=== PATIENT | male | born 1990 | race Caucasian/White ===

== ENCOUNTER 2017-09-26 15:41 | Emergency (ER) | payer OTHER, SELFPAY ==
[2017-09-26] MEDS ORDERED: ALBUTEROL 2.5 MG/3 ML NEB SOL ONE (17:11)
[2017-09-26] MEDS ORDERED: IPRATROPIUM BROM 0.5MG/2.5ML ONE (17:12)
--- NOTE | 2017-09-26 17:38 | RAD REPORT ---
EXAM DESCRIPTION: Moisés Burton And Jacob (2 Views)09/26/2017 5:31 pm CLINICAL HISTORY: Cough COMPARISON: None FINDINGS: The lungs appear clear of acute infiltrate. The heart is normal size. Scoliosis involves thoracolumbar spine IMPRESSION: No acute abnormalities displayed
[2017-09-26] MEDS ORDERED: MAGNESIUM SULFATE 1 gm IVPB 1 GM/100 ML BAG IV ONE (18:17)
[2017-09-26] MEDS ORDERED: DEXAMETHASONE 10 MG/ML VIAL ONE (18:17)
[2017-09-26 18:25] LABS: Absolute Lymphocytes (CBC) 3.4 K/uL (0.7-4.9); Absolute Monocytes 1.2 K/uL (0.1-1.3); Absolute Neutrophil 9.1 K/uL (1.8-8.0); Basophils % 0.4 % (0-1.3); Eosinophils % 0.9 % (0-4.4); Hematocrit 48.4 % (39.6-49.0); Lymphocytes % 24.6 % (15.3-44.8); MCV 87.3 fL (80-100); MPV 7.6 fL (7.6-11.3); Monocytes % 8.4 % (3.3-12.3); RBC Red Blood Cell Count 5.54 M/uL (4.33-5.43)
[2017-09-26 18:30] LABS: Bicarbonate 28 mEq/L (21-31); Glucose Level 109 mg/dL (65-120); Potassium 3.1 mEq/L (3.6-5.0); Sodium Level 137 mEq/L (135-145)
[2017-09-26 18:31] LABS: BUN Blood Urea Nitrogen 9 mg/dL (6-20)
--- NOTE | 2017-09-26 18:52 | EDPHYS ---
Physician Documentation [facility] Name: Magan Agarwal Age: 26 yrs Sex: Male : 1990 Arrival Date: 09/26/2017 Time: 15:43 Bed 27 Private MD: None, None ED Physician José Miguel Fernandes HPI: 09/26 17:31 This 26 yrs old Male presents to ER via Ambulatory with complaints of kb Breathing Difficulty. 17:31 The patient or guardian reports cough, that is intermittent, described as moderate, kb with no sputum, difficulty breathing. Onset: The symptoms/episode began/occurred 5 day(s) ago. Severity of symptoms: At their worst the symptoms were moderate, in the emergency department the symptoms are unchanged. Modifying factors: The symptoms are alleviated by nothing, the symptoms are aggravated by nothing. Associated signs and symptoms: Pertinent positives: rhinorrhea, Pertinent negatives: chest pain, diarrhea, ear ache, fever, nausea, sore throat, vomiting. The patient has not experienced similar symptoms in the past. The patient has been recently seen by a physician:. 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 - Social history:: Smoking status: Patient uses tobacco products, smokes one-half pack cigarettes per day. ROS: 17:30 Constitutional: Negative for fever, chills, and weight loss, Cardiovascular: Negative kb for chest pain, palpitations, and edema, Abdomen/GI: Negative for abdominal pain, nausea, vomiting, diarrhea, and constipation, Back: Negative for injury and pain, : Negative for injury, bleeding, discharge, and swelling, MS/Extremity: Negative for injury and deformity, Skin: Negative for injury, rash, and discoloration, Neuro: Negative for headache, weakness, numbness, tingling, and seizure. 17:30 ENT: Positive for rhinorrhea, sinus congestion. 17:30 Respiratory: Positive for cough, with no reported sputum, shortness of breath, Negative for dyspnea on exertion, hemoptysis, orthopnea, pleurisy, wheezing. Exam: 17:31 Constitutional: This is a well developed, well nourished patient who is awake, alert, kb and in no acute distress. Head/Face: Normocephalic, atraumatic. ENT: Nares patent. No nasal discharge, no septal abnormalities noted. Tympanic membranes are normal and external auditory canals are clear. Oropharynx with no redness, swelling, or masses, exudates, or evidence of obstruction, uvula midline. Mucous membranes moist. Neck: Trachea midline, no thyromegaly or masses palpated, and no cervical lymphadenopathy. Supple, full range of motion without nuchal rigidity, or vertebral point tenderness. No Meningismus. Chest/axilla: Normal chest wall appearance and motion. Nontender with no deformity. No lesions are appreciated. Cardiovascular: Regular rate and rhythm with a normal S1 and S2. No gallops, murmurs, or rubs. Normal PMI, no JVD. No pulse deficits. Abdomen/GI: Soft, non-tender, with normal bowel sounds. No distension or tympany. No guarding or rebound. No evidence of tenderness throughout. Skin: Warm, dry with normal turgor. Normal color with no rashes, no lesions, and no evidence of cellulitis. MS/ Extremity: Pulses equal, no cyanosis. Neurovascular intact. Full, normal range of motion. Neuro: Awake and alert, GCS 15, oriented to person, place, time, and situation. Cranial nerves II-XII grossly intact. Motor strength 5/5 in all extremities. Sensory grossly intact. Cerebellar exam normal. Normal gait. 17:31 Respiratory: the patient does not display signs of respiratory distress, Respirations: normal, Breath sounds: wheezing: expiratory that is moderate, is scattered. Vital Signs: 15:51 BP 125 / 80; Pulse 102; Resp 18; Temp 99.1; Pulse Ox 99% on R/A; rk2 18:26 BP 135 / 67; Pulse 105; Resp 18; Pulse Ox 99% on R/A; tl3 19:20 BP 128 / 84; Pulse 102; Resp 16; Pulse Ox 100% on R/A; tl3 MDM: 16:46 Patient medically screened. kb 17:29 Data reviewed: vital signs, nurses notes. Data interpreted: Pulse oximetry: on room air kb is 99 %. Interpretation: normal. 18:49 Counseling: I had a detailed discussion with the patient and/or guardian regarding: the kb historical points, exam findings, and any diagnostic results supporting the discharge/admit diagnosis, lab results, radiology results, the need for outpatient follow up, a family practitioner, to return to the emergency department if symptoms worsen or persist or if there are any questions or concerns that arise at home. 18:49 ED course: Pt just completed rounds of amoxicillin and prednisone. Educated on viral kb illnesses. Educated on need for antihistamine with decongestant, flonase and albuterol inhaler. Verbal understanding received of all discharge instructions. . 09/26 17:13 Order name: CBC with Diff; Complete Time: 18:31 kb 09/26 17:13 Order name: Basic Metabolic Panel kb 09/26 17:13 Order name: Chest Pa And Lat (2 Views) XRAY; Complete Time: 17:38 kb Administered Medications: 17:30 Drug: DuoNeb (3:1) (2.5 mg - 0.5 mg) 3 ml Route: Nebulizer; tl3 18:16 Follow up: Response: No adverse reaction tl3 18:25 Drug: Decadron - Dexamethasone 10 mg Route: IVP; Site: right antecubital; tl3 19:21 Follow up: Response: No adverse reaction tl3 18:26 Drug: Magnesium Sulfate 1 grams Route: IVPB; Infused Over: 1 hrs; Site: right tl3 antecubital; 19:21 Follow up: IV Status: Completed infusion; IV Intake: 100ml tl3 19:24 Drug: Potassium Chloride 40 mEq Route: PO; tl3 19:24 Follow up: Response: Medication administered at discharge. tl3 Disposition: 09/27 07:51 Co-signature as Attending Physician, José Miguel Fernandes MD I agree with the assessment and kathrine plan of care. Disposition: 09/26/17 18:52 Discharged to Home. Impression: Bronchitis, not specified as acute or chronic. - Condition is Stable. - Discharge Instructions: Acute Bronchitis, [id number]. - Prescriptions for Albuterol Sulfate 90 mcg/actuation - inhale 1-2 puff by INHALATION route every 4-6 hours; 1 Inhaler. Tessalon Perles 100 mg Oral Capsule - take 1 capsule by ORAL route every 8 hours As needed; 15 capsule. - Medication Reconciliation Form, Thank You Letter, Antibiotic Education, Prescription Opioid Use form. - Follow up: Emergency Department; When: As needed; Reason: Worsening of condition. Follow up: Private Physician; When: 2 - 3 days; Reason: Recheck today's complaints, Continuance of care, Re-evaluation by your physician. Signatures: Dispatcher [employer] Ca Vela, SHAISTA VELEZ-José Miguel Palmer MD MD cha Kidder, Rhonda, RN RN rk2 Rekha Simmons RN RN tl3
--- NOTE | 2017-09-26 18:52 | ER ---
Nurse's Notes [facility] Name: Magan Agarwal Age: 26 yrs Sex: Male : 1990 Arrival Date: 09/26/2017 Time: 15:43 Bed 27 Private MD: None, None Diagnosis: Bronchitis, not specified as acute or chronic Presentation: 09/26 15:48 Presenting complaint: Patient states: Pt. c/o of cough x over 1 weeks, was seen in ED rk2 in another [facility] and was given antibiotics and steroids... was told that his chest xray was ok. However, pt. state that he has completed medication and is not feeling better. States that when he is coughing it is difficult to catch his breath. Transition of care: patient was not received from another setting of care. Onset of symptoms was September 26, 2017. Initial Sepsis Screen: Does the patient meet any 2 criteria? HR > 90 bpm. Does the patient have a suspected source of infection? No. Patient's initial sepsis screen is negative. Care prior to arrival: None. 15:48 Method Of Arrival: Ambulatory rk2 15:48 Acuity: LUCÍA 3 rk2 Triage Assessment: 17:08 General: Appears. Respiratory: Reports shortness of breath air hunger Onset: The tl3 symptoms/episode began/occurred over the last two weeks, the patient has mild shortness of breath. 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 - Social history:: Smoking status: Patient uses tobacco products, smokes one-half pack cigarettes per day. Screenin:02 Abuse screen: Denies threats or abuse. Nutritional screening: No deficits noted. tl3 Tuberculosis screening: No symptoms or risk factors identified. Fall Risk None identified. Assessment: 17:02 Reassessment: pt reports being treated for resp infection 10 days ago, finished 5 days tl3 of steroids, 9 days of Amoxicillin, continuing to take pseudoephedrine and benadryl for congestion. General: Appears in no apparent distress. comfortable, slender, well groomed, well developed, well nourished, Behavior is calm, cooperative, appropriate for age, anxious. Pain: Complains of pain in chest with cough. Neuro: Level of Consciousness is awake, alert, obeys commands, Oriented to person, place, time, situation, Appropriate for age. Cardiovascular: Heart tones S1 S2 present Capillary refill < 3 seconds in bilateral fingers Rhythm is regular. Respiratory: Airway is patent Trachea midline Respiratory effort is even, shallow, Respiratory pattern is regular, symmetrical, Breath sounds are clear bilaterally. GI: No signs and/or symptoms were reported involving the gastrointestinal system. : No signs and/or symptoms were reported regarding the genitourinary system. EENT: Nares are clear redness and swelling to sinus areas with pressure pain. Throat is reddened. Derm: No signs and/or symptoms reported regarding the dermatologic system. Musculoskeletal: No signs and/or symptoms reported regarding the musculoskeletal system. 18:26 Reassessment: Patient appears in no apparent distress at this time. No changes from tl3 previously documented assessment. Patient and/or family updated on plan of care and expected duration. Pain level reassessed. Patient is alert, oriented x 3, equal unlabored respirations, skin warm/dry/pink. pt states that the breathing treatment helped him breathe easier. 19:20 Reassessment: Patient appears in no apparent distress at this time. No changes from tl3 previously documented assessment. Patient and/or family updated on plan of care and expected duration. Pain level reassessed. Patient is alert, oriented x 3, equal unlabored respirations, skin warm/dry/pink. Vital Signs: 15:51 BP 125 / 80; Pulse 102; Resp 18; Temp 99.1; Pulse Ox 99% on R/A; rk2 18:26 BP 135 / 67; Pulse 105; Resp 18; Pulse Ox 99% on R/A; tl3 19:20 BP 128 / 84; Pulse 102; Resp 16; Pulse Ox 100% on R/A; tl3 ED Course: 15:43 Patient arrived in ED. mr 15:43 None, None is Private Physician. mr 15:51 Triage completed. rk2 16:44 Rekha Simmons, ROBYN is Primary Nurse. tl3 16:46 Ca Hammond [facility] kb 16:46 José Miguel Fernandes MD is Attending Physician. kb 17:02 No apparent distress. Resting quietly. Awaiting ED provider evaluation. tl3 17:02 Patient has correct armband on for positive identification. Bed in low position. Call tl3 light in reach. Side rails up X 1. Pulse ox on. NIBP on. 17:02 No provider procedures requiring assistance completed. Maintain EMS IV. Dressing tl3 intact. Good blood return noted. Site clean \T\ dry. 17:10 Rekha Simmons, RN is Primary Nurse. tl3 17:28 Patient moved to radiology via wheelchair. ml 17:28 X-ray completed. Patient tolerated procedure well. ml 17:28 Patient moved back from radiology. ml 17:29 Chest Pa And Lat (2 Views) XRAY In Process Unspecified. EDMS 18:29 Arm band placed on left wrist. tl3 19:26 IV discontinued, intact, bleeding controlled, No redness/swelling at site. Pressure tl3 dressing applied. Administered Medications: 17:30 Drug: DuoNeb (3:1) (2.5 mg - 0.5 mg) 3 ml Route: Nebulizer; tl3 18:16 Follow up: Response: No adverse reaction tl3 18:25 Drug: Decadron - Dexamethasone 10 mg Route: IVP; Site: right antecubital; tl3 19:21 Follow up: Response: No adverse reaction tl3 18:26 Drug: Magnesium Sulfate 1 grams Route: IVPB; Infused Over: 1 hrs; Site: right tl3 antecubital; 19:21 Follow up: IV Status: Completed infusion; IV Intake: 100ml tl3 19:24 Drug: Potassium Chloride 40 mEq Route: PO; tl3 19:24 Follow up: Response: Medication administered at discharge. tl3 Intake: 19:21 IV: 100ml; Total: 100ml. tl3 Outcome: 18:52 Discharge ordered by MD. barkley 19:26 Discharged to home ambulatory. tl3 19:26 Condition: stable 19:26 Discharge instructions given to patient, Instructed on discharge instructions, follow up and referral plans. medication usage, Demonstrated understanding of instructions, follow-up care, medications, Prescriptions given X 2. 19:41 Patient left the ED. tl3 Signatures: Dispatcher [employer] EDMS Ca Hammond, GOLF COURSE SUPERINTENDENT-C AGUSTIN-Katty Camacho, Aline Posada RN RN rk2 [place], Rekha, RN RN tl3
[2017-09-26] MEDS ORDERED: POTASSIUM CL SA 10 MEQ TAB PO ONE (19:22)
== END 2017-09-26 19:41 | disposition home or self-care (01) ==
LOC: ER 15:41
DX: J40 Bronchitis, not specified as acute or chronic (principal); I10 Essential (primary) hypertension
CPT/HCPCS: 36415; 71046; 80048; 85025; 94640; 96365; 96375; 99284; J1100; J3475